=== PATIENT | female | born 1955 | race Caucasian/White ===

== ENCOUNTER → 2017-10-04 | Outpatient (CLI) | payer OTHER | LOC: BMCIMAGING 08:44 | PROVIDERS: ATTEND Internal Medicine | DX: N93.9 Abnormal uterine and vaginal bleeding, unspecified (principal); Z90.721 Acquired absence of ovaries, unilateral ==

== ENCOUNTER 2017-12-30 20:08 | Emergency (ER) | payer OTHER ==
--- NOTE | 2017-12-30 20:29 | EDPHY ---
H & P Stated Complaint: L FOOT PAIN/"HEARD A POP, CLIMBING UP BED." Time Seen by Provider: 12/30/17 20:16 HPI/ROS: CHIEF COMPLAINT: Left foot pain "I felt a pop" HISTORY OF PRESENT ILLNESS: 62-year-old female history of breast cancer, arrives via private vehicle complaining of left plantar pain after she was stepping onto her son's bed and felt a"pop"on the plantar aspect of her left foot. She is unable to bear weight. She has reproducible pain with palpation and with attempts at ambulation. She had a steroid injection 2 months ago to same area for presumed plantar fasciitis. Denies fall from height tonight. PHYSICAL EXAM (Prior to examination, patient consented to physical exam, hands were washed and my usual and customary physical exam procedures followed) 1) GENERAL: Well-developed, well-nourished, alert and oriented. Appears to be in no acute distress. 2) HEAD: Normocephalic 3) HEENT: Pupils equal, round, reactive to light bilaterally. 4) LUNGS: Breathing comfortably. 5) MUSCULOSKELETAL: Tender to palpation mid foot plantar aspect. Soft compartments to the foot. proximal tibia and fibula nontender .5th MT nontender negative Perry test, compartments soft 6) SKIN: Intact 7) VASCULAR: DP,PT pulses and cap refill present and brisk DIFFERENTIAL DIAGNOSIS: in no particular order including but not limited to fracture, sprain, compartment syndrome Xray of the left foot interpreted by myself: no definitive acute osseous abnormality Procedure: Crutches indications for crutch use discussed with patient. Patient fitted for crutches by ER staff. Observed ambulating with crutches. I think the patient has the capacity to safely use crutches. Usual and customary crutch walking precautions provided Procedure: Splint A postop shoe splint was applied by ER vending machine technician. After application of the splint I returned and re-examined the patient. The splint was adequately immobilizing the joint and distal to the splint the patient's circulation and sensation were intact. Patient shows no signs of compartment syndrome. Was given orthopedic precautions. - Personal History Current Tetanus Diphtheria and Acellular Pertussis (TDAP): Yes - Medical/Surgical History Hx Asthma: No Hx Chronic Respiratory Disease: No Hx Diabetes: No Hx Cardiac Disease: No Hx Renal Disease: No Hx Cirrhosis: No Hx Alcoholism: No Hx HIV/AIDS: No Hx Splenectomy or Spleen Trauma: No Other PMH: BREAST CA (LUMPECTOMY R SIDE), ON XARELTO FOR PE'S, AND DVT'S, AND BLOOD CLOT L NECK. - Social History Smoking Status: Never smoked Constitutional: Initial Vital Signs Temperature (C) 36.8 C 12/30/17 20:10 Heart Rate 92 12/30/17 20:10 Respiratory Rate 16 12/30/17 20:10 Blood Pressure 147/94 H 12/30/17 20:10 O2 Sat (%) 94 12/30/17 20:10 O2 Delivery Mode Room Air Allergies/Adverse Reactions: adhesive Allergy (Verified 12/16/13 10:57) silver [From Tegaderm AG Mesh] Allergy (Verified 12/16/13 10:57) STERISTRIPS Allergy (Uncoded 12/16/13 10:57) Home Medications: Medication Instructions Recorded Citalopram 12/30/17 Estrogens,Esterified 12/30/17 Xarelto 12/30/17 Medical Decision Making - Diagnostics Imaging Results: Imaging Impressions Foot X-Ray 12/30/17 20:25 Impression: No evidence for acute osseous abnormality left foot. Images reviewed myself ED Course/Re-evaluation: Re-evaluation with serial exams most recently at 9:18 p.m.: Discussed her negative imaging results. We discussed the limitations of imaging. She has been informed that non osseous injury is not ruled out. Plan will be postop shoe, follow up with her scoop operator Dr. Mitchell John. I do not think that emergent MRI is indicated. She has soft compartments. She feels comfortable being discharged. She declines analgesia. Usual and customary orthopedic precautions instructions provided. I saw this patient independently based on established practice protocols. Care of patient under supervision of secondary supervising physician Dr Xavi Bennett . - Data Points Medications Given: Discontinued Medications Acetaminophen (Tylenol) 1,000 mg PO EDNOW ONE Stop: 12/30/17 21:06 Last Admin: 12/30/17 21:17 Dose: 1,000 mg Departure - Departure Disposition: Home, Routine, Self-Care Clinical Impression: Left foot pain Condition: Good Instructions: Hydrocodone/Acetaminophen (By mouth), Foot Sprain (ED) Additional Instructions: Return to the ER immediately if you experience discoloration, have worsening pain, numbness, tingling, or any other symptoms that concern you. If you received x-rays in the emergency department today, be advised, that ligamentous , tendon, muscular, and other non-bony injury cannot be fully ruled out. Try to keep your affected extremity elevated above the level of your chest, and keep cold packs on the affected area, for the next 48 hours. Referrals: Mitchell John DPM [Doctor of Podiatric Medicine] - As per Instructions
[2017-12-30] MEDS ORDERED: ACETAMINOPHEN 500 MG TAB PO ONE (21:05)
[2017-12-30] MEDS ORDERED: HYDROCOD/APAP 5/325 PREPACK#6 BTL TAKEHOME ONE (21:23)
[2017-12-30 21:46] VITALS: BP 137/72
== END 2017-12-30 21:46 | disposition home or self-care (01) ==
DX: M79.672 Pain in left foot (principal); Z85.3 Personal history of malignant neoplasm of breast
CPT/HCPCS: L4386

== ENCOUNTER → 2018-03-26 | Outpatient (CLI) | payer OTHER | LOC: BRMIMAGING 14:56 | PROVIDERS: ATTEND Internal Medicine Hematology & Oncology | DX: Z13.820 Encounter for screening for osteoporosis (principal); M85.89 Other specified disorders of bone density and structure, multiple sites ==